=== PATIENT | male | born 1955 | race Caucasian/White ===

== ENCOUNTER 2017-11-27 19:15 | Emergency (ER) | payer OTHER ==
[~2017-11-27] VITALS: Ht 177.8 cm; Wt 84.1 kg
[~2017-11-27 19:15] MED LIST: ACCUPRIL5MGTAB PO; LORTAB 5/500 501 TAB PO; NORCO 325 MG-7.1 TAB PO; NORVASC2.5 MG PO; ZOMIG 2.5MG2.5 MG PO; bp med
[2017-11-27 19:16] VITALS: TEMP 97.9
[2017-11-27 20:15] VITALS: BP 145/74; PULSE 62
== END 2017-11-27 20:15 | disposition home or self-care (01) ==
LOC: COL.ER 19:15
DX: S01.81XA Laceration without foreign body of other part of head, initial encounter (principal); I10 Essential (primary) hypertension; W11.XXXA Fall on and from ladder, initial encounter; Y92.009 Unspecified place in unspecified non-institutional (private) residence as the place of occurrence of the external cause

== ENCOUNTER → 2017-12-04 | Emergency (ER) | payer OTHER ==
[2017-12-04 17:28] VITALS: BP 131/59; PULSE 58; TEMP 98.1
== END ==
LOC: COL.ER 17:24
DX: S01.111D Laceration without foreign body of right eyelid and periocular area, subsequent encounter (principal)

== ENCOUNTER → 2019-04-27 | Outpatient (CLI) | payer OTHER | LOC: COL.RAD 07:32 | DX: K21.9 Gastro-esophageal reflux disease without esophagitis (principal) | CPT/HCPCS: A9541 ==

== ENCOUNTER 2019-05-09 05:26 | Day surgery (SDC) | payer OTHER ==
[~2019-05-09] VITALS: Ht 177.8 cm; Wt 91.1 kg
[2019-05-09] VITALS (10 sets, daily range): BP systolic 101–142; BP diastolic 51–68; PULSE 54–70; TEMP 98–98.6
[2019-05-09] MEDS ORDERED: NORVASC 10MG10 MG PO (05:45)
[2019-05-09] MEDS ORDERED: PROTONIX 40MG T40 MG PO (05:46)
[2019-05-09] MEDS ORDERED: ACCUPRIL40MGTAB PO (05:46)
--- NOTE | 2019-05-09 06:00 | NUR ---
The patient ambulated back to [facility] independently using a steady gait and appeared to tolerate the activity well. Vital signs obtained. Consent signed. 18G IV started in left hand with one stick, LR infusing without difficulty. Assessment completed. Call light is within reach. brought back to be at his bedside. The patient denies any further needs at this time. Will continue to monitor the patient.
--- NOTE | 2019-05-09 07:25 | NUR ---
The patient has been taken to the operating room via cart and his has returned to the waiting room to receive updates. The patient's belongings were taken to the recovery room and will be transferred with the patient to the 3rd floor after surgery.
--- NOTE | 2019-05-09 10:00 | NUR ---
Patient recieved post op to room 348. Report from [place] [facility]. Vitals stable. Robotic lap site x6 open to air. Ivf to [place]. Patient at bedside, will monitor closely.
--- NOTE | 2019-05-09 13:47 | NUR ---
Patient continues to do well. He has been frequently ambulating the halls. Tolerating clear liquids, he does not like all of the sugary drinks, but drinking tea & coffee. Vitals stable on room air. He has voided. Iv to Int. Will monitor.
--- NOTE | 2019-05-09 19:25 | NUR ---
Patient continues to do well. Minimal complaints of pain or nausea. Hopeful for discharge in the morning. Patient Noted to have a different voice. He reports a sore throat, no crepitis noted. We reviewed Eras. Report off to [facility] BALBUENA
--- NOTE | 2019-05-09 19:45 | NUR ---
Pt. sitting up in chair at this time. Pt. is A&OX3, assessment complete. INT to lt. hand patent. Six abd. lap sites noted, JENIFFER with cervantes set, edges well approximated. Pt. denies pain or other needs, call light within reach.
[2019-05-10] VITALS: BP 128/63; PULSE 67; TEMP 98.2
[2019-05-10 04:00] VITALS: BP 130/69; PULSE 67; TEMP 98.1
[2019-05-10 07:40] VITALS: BP 136/65; PULSE 68; TEMP 97.9
--- NOTE | 2019-05-10 09:13 | NUR ---
PT INDEPENDENT IN ROOM. INCISIONS [facility] CLOSED WITH SWIFTSET. PT READY TO GO HOME. WILL DISCHARGE WHEN DR ROUNDS AND GIVES ORDERS.
--- NOTE | 2019-05-10 11:00 | NUR ---
[employer] Supervisor met with patient to discuss discharge planning. Patient lives in [place] with his Breanne and his children. Patient sees Dr. Martines for primary care and obtains medications from [facility] with no difficulties. Patient does not use any DME and is independent with ADLS. Patient plans to return home upon discharge. No concerns at this time.
--- NOTE | 2019-05-10 11:55 | NUR ---
DISCHARGE INSTRUCTIONS REVIEWED WITH PT AND SPOUSE, QUESTOINS ANSWERED. PT LEFT AMBULATORY WITH STAFF ESCORTING.
== END 2019-05-10 11:00 | disposition home or self-care (01) ==
LOC: SURG 05:26 → SDCO 05:26 → SURG 09:39 → SDCO 05-10 11:00
DX: K44.9 Diaphragmatic hernia without obstruction or gangrene (principal); K21.9 Gastro-esophageal reflux disease without esophagitis; G43.909 Migraine, unspecified, not intractable, without status migrainosus; I10 Essential (primary) hypertension; Z98.52 Vasectomy status; Z80.8 Family history of malignant neoplasm of other organs or systems; Z82.49 Family history of ischemic heart disease and other diseases of the circulatory system
CPT/HCPCS: OP; J0690; J1100; J1885; J2405; J2704; J3010; J7120